=== PATIENT | male | born 1950 | race African-American/Black ===

== ENCOUNTER 2016-10-19 13:11 | Emergency (ER) | payer OTHER ==
[~2016-10-19] VITALS: Ht 193 cm; Wt 107.7 kg
[2016-10-19 13:14] VITALS: BP 157/84
[2016-10-19] MEDS ORDERED: FLEXERIL10 MG PO (13:41)
[2016-10-19] MEDS ORDERED: ULTRAM50 MG PO (13:41)
== END 2016-10-19 15:03 | disposition home or self-care (01) ==
LOC: EXP 13:11 → EME 13:11 → EXP 15:03
DX: M51.36 Other intervertebral disc degeneration, lumbar region (principal); M62.830 Muscle spasm of back
CPT/HCPCS: 99281; 99283